=== PATIENT | female | born 1965 ===

== ENCOUNTER 2017-04-02 15:54 | Emergency (ER) | payer MEDICAID ==
[2017-04-02 16:09] VITALS: TEMP 97.9
[2017-04-02] MEDS ORDERED: Lidocaine 2% Viscous 100 ml PO STA (16:34)
[2017-04-02] MEDS ORDERED: Alum-Mag Hydrox-Simethicone Susp (30 mL) PO STA (16:34)
--- NOTE | 2017-04-02 16:39 | C.PDOC ---
History Of Present Illness 51-year-old female, PMHx includes Anemia, Anxiety, Asthma, Bipolar Disorder, Colonic Polyps, Depression, Diabetes, Gall Bladder Disease (Gallstones), Hepatitis (C), Hypertension, Hypercholesterolemia, and Schizophrenia, presents to the emergency department with complaints of abdominal pain. Patient states she accidentally took one large gulp of bleach two days ago, which she mistook for a bottle of water. patient developed abdominal "burning" yesterday and had several episodes of non-bloody/non-bilious vomiting.vomited several times. Patient adamantly denies any suicidal ideation. No other complaints at this time. Of note, patient had a syncopal episode in waiting room. Time Seen by Provider: 04/02/17 16:04 Chief Complaint (Nursing): Syncope History Per: Patient History/Exam Limitations: no limitations Past Medical History Reviewed: Historical Data, Nursing Documentation, Vital Signs Vital Signs: Last Vital Signs Temp 97.9 F 04/02/17 16:03 Pulse 76 04/02/17 19:10 Resp 18 04/02/17 19:10 BP 128/85 04/02/17 19:10 Pulse Ox 98 04/02/17 19:10 - Medical History PMH: Anemia, Anxiety, Asthma, Bipolar Disorder, Colonic Polyps, Depression, Diabetes, Gall Bladder Disease (Gallstones), Hepatitis (C), HTN, Hypercholesterolemia, Schizophrenia, TIA (2013) Denies: Fractures, HIV, Chronic Kidney Disease, Seizures, Sexually Transmitted Disease Surgical History: Cholecystectomy Denies: Endoscopy - [facility] Procedures GROUP SPEECH LANGUAGE PATHOLOGY ASSISTANT FOR SUBSTANCE ABUSE TREATMENT, PSYCHOEDUCATION (10/23/16) INJECT/INFUSE NEC (08/02/15) RABIES VACCINATION (07/05/15) TETANUS TOXOID ADMINIST (06/18/15) Family History: States: No Known Family Hx - Social History Hx Tobacco Use: Yes Hx Alcohol Use: Yes Hx Substance Use: No - Immunization History Hx Tetanus Toxoid Vaccination: Yes Hx Influenza Vaccination: No Hx Pneumococcal Vaccination: No Review Of Systems Constitutional: Negative for: Fever Cardiovascular: Negative for: Chest Pain Respiratory: Negative for: Shortness of Breath Gastrointestinal: Positive for: Abdominal Pain. Negative for: Nausea, Vomiting Musculoskeletal: Negative for: Back Pain Neurological: Positive for: Other (syncope) Physical Exam - Physical Exam Appears: Non-toxic Skin: Warm, Dry Head: Atraumatic Eye(s): bilateral: PERRL Nose: No Epistaxis Oral Mucosa: Moist Tongue: No Swelling, No Lesions Lips: No Swelling, No Contusion Gingiva: No Erythema, No Ulceration, No Swelling Throat: No Erythema, No Exudate, No Drooling Neck: Normal ROM Cardiovascular: Rhythm Regular Respiratory: No Decreased Breath Sounds, No Accessory Muscle Use, No Rales, No Rhonchi, No Stridor, No Wheezing Gastrointestinal/Abdominal: Soft, Tenderness (non focal. diffuse), No Distention , No Guarding, No Rebound Extremity: No Swelling Neurological/Psych: Oriented x3, Other (no focal deficits) ED Course And Treatment - Laboratory Results Result Diagrams: 04/02/17 17:02 04/02/17 17:19 O2 Sat by Pulse Oximetry: 92 Medical Decision Making Medical Decision Making: Chest X-Ray: No free air. non-specific bowel gas pattern ecg- nsr, nl axis, no acute ischemia [facility] spoke with pt- no indication for psych admission at this time. Poison control contacted- no specific treatment or testing indicated at this time for swallowing small amount of household bleach. PROCEDURE: CT Abdomen and Pelvis without intravenous contrast HISTORY: abd pain COMPARISON: 10/14/2016. CT abdomen and pelvis. Summary of findings on the comparison examination: Segmental thickening of the ascending colon consistent with colitis. October 15, 2016 abdominal ultrasound. Summary of findings on the comparison examination: 1.6 x 1.7 cm hepatic cysts. TECHNIQUE: Unenhanced study. Neither oral nor intravenous contrast administered. Sensitivity and specificity for acute inflammatory processes limited by the absence of oral and intravenous contrast. Radiation dose: Total exam DLP = mGy-cm. This CT exam was performed using one or more of the following dose reduction techniques: Automated exposure control, adjustment of the mA and/or kV according to patient size, and/or use of iterative reconstruction technique. FINDINGS: LOWER THORAX: Unremarkable. LIVER: Unremarkable. No gross lesion or ductal dilatation. Incidental finding(s): 2 cm cyst right hepatic lobe/dome of diaphragm unchanged. GALLBLADDER AND BILE DUCTS: Status post cholecystectomy. No abnormality is seen in the gallbladder fossa. PANCREAS: Unremarkable. No gross lesion or ductal dilatation. SPLEEN: Unremarkable. ADRENALS: Unremarkable. No mass. KIDNEYS AND URETERS: Unremarkable. No hydronephrosis. No solid mass. VASCULATURE: Unremarkable. No aortic aneurysm. BOWEL: Unremarkable. No obstruction. No gross mural thickening. Constipation without fecal impaction or obstruction. APPENDIX: Unremarkable. Normal appendix. PERITONEUM: Unremarkable. No free fluid. No free air. LYMPH NODES: Unremarkable. No enlarged lymph nodes. BLADDER: Unremarkable. REPRODUCTIVE: Unremarkable. BONES: No acute fracture. OTHER FINDINGS: None. IMPRESSION: No acute findings related to/accounting for the clinical presentation. Additional benign and/or incidental findings described above. Disposition - Disposition Referrals: Nabil Mai MD [Staff Provider] - [facility] [Outside] Disposition: HOME/ ROUTINE Disposition Time: 19:00 Condition: STABLE Additional Instructions: Please follow up with your doctor. Return to the ER for any worsening symptoms or for any other concerns. Prescriptions: Famotidine [Pepcid] 20 mg PO DAILY #14 tab Forms: General Discharge Instructions - Clinical Impression Clinical Impression: Accidental ingestion of substance - Scribe Statement The provider has reviewed the documentation as recorded by the Jeb Hobbs All medical record entries made by the Lincolnibrose were at my direction and personally dictated by me. I have reviewed the chart and agree that the record accurately reflects my personal performance of the history, physical exam, medical decision making, and the department course for this patient. I have also personally directed, reviewed, and agree with the discharge instructions and disposition.
[2017-04-02] MEDS ORDERED: Aluminum Hydroxide/Magnesium Hydroxide Susp (30 mL) ONE (16:45)
[2017-04-02] MEDS ORDERED: Alum-Mag Hydrox-Simethicone Susp (30 mL) ONE (16:50)
[2017-04-02 17:25] LABS: BASO % 0.7 % (0.0-2.0); EOS % 0.4 % (0.0-4.0); HEMATOCRIT 39.2 % (34.0-47.0); LYMPH % 36.6 % (20.0-40.0); MEAN CELL VOLUME 75.6 fL (81.0-99.0); MEAN CORPUSCULAR HEMOGLOBIN 24.8 pg (27.0-31.0); MEAN CORPUSCULAR HGB CONC 32.8 g/dL (33.0-37.0); MEAN PLATELET VOLUME 9.7 fL (7.2-11.7); MONO # 0.2 K/uL (0.0-0.8); MONO % 4.4 % (0.0-10.0); NRBC % 0.1 % (0.0-2.0); RED CELL DISTRIBUTION WIDTH 14.9 % (11.5-14.5); WHITE BLOOD COUNT 5.5 K/uL (4.8-10.8)
--- NOTE | 2017-04-02 17:30 | CT ---
PROCEDURE: CT HEAD WITHOUT CONTRAST. HISTORY: syncope fall COMPARISON: Comparison is made to 08/28/2015 TECHNIQUE: Axial computed tomography images were obtained through the head/brain without intravenous contrast. Radiation dose: Total exam DLP = 821.93 mGy-cm. This CT exam was performed using one or more of the following dose reduction techniques: Automated exposure control, adjustment of the mA and/or kV according to patient size, and/or use of iterative reconstruction technique. FINDINGS: HEMORRHAGE: No intracranial hemorrhage. BRAIN: No mass effect or edema. Mild atrophy is again noted. VENTRICLES: Unremarkable. No hydrocephalus. CALVARIUM: Unremarkable. PARANASAL SINUSES: Unremarkable as visualized. No significant inflammatory changes. MASTOID AIR CELLS: Partial opacification of the left mastoid is noted. OTHER FINDINGS: None. IMPRESSION: No evidence of acute intracranial hemorrhage intracranial collection mass effect or midline shift. Partial opacification of the left mastoid noted.
[2017-04-02 17:34] LABS: CHLORIDE 105 mmol/L (98-107)
[2017-04-02 17:35] LABS: POTASSIUM 3.3 mmol/L (3.6-5.2); SODIUM 142 mmol/L (132-148)
[2017-04-02 17:37] LABS: ALB/GLOB RATIO 1.3 (1.0-2.1); ALKALINE PHOSPHATASE 109 U/L (38-126); AST/SGOT 40 U/L (14-36); BILIRUBIN,TOTAL 0.9 mg/dL (0.2-1.3); BLOOD UREA NITROGEN 9 mg/dL (7-17); CARBON DIOXIDE 23 mmol/L (22-30); GFR AFRICAN-AMERICAN > 60; GLUCOSE,RANDOM 87 mg/dL (65-105); TOTAL PROTEIN 7.6 g/dL (6.3-8.3)
[2017-04-02 17:38] LABS: ALT/SGPT 29 U/L (9-52); CALCIUM 9.1 mg/dl (8.6-10.4)
[2017-04-02 17:51] LABS: ALCOHOL SERUM 191 mg/dl (0-10)
--- NOTE | 2017-04-02 18:57 | CT ---
PROCEDURE: CT Abdomen and Pelvis without intravenous contrast HISTORY: abd pain COMPARISON: 10/14/2016. CT abdomen and pelvis. Summary of findings on the comparison examination: Segmental thickening of the ascending colon consistent with colitis. October 15, 2016 abdominal ultrasound. Summary of findings on the comparison examination: 1.6 x 1.7 cm hepatic cysts. TECHNIQUE: Unenhanced study. Neither oral nor intravenous contrast administered. Sensitivity and specificity for acute inflammatory processes limited by the absence of oral and intravenous contrast. Radiation dose: Total exam DLP = mGy-cm. This CT exam was performed using one or more of the following dose reduction techniques: Automated exposure control, adjustment of the mA and/or kV according to patient size, and/or use of iterative reconstruction technique. FINDINGS: LOWER THORAX: Unremarkable. LIVER: Unremarkable. No gross lesion or ductal dilatation. Incidental finding(s): 2 cm cyst right hepatic lobe/dome of diaphragm unchanged. GALLBLADDER AND BILE DUCTS: Status post cholecystectomy. No abnormality is seen in the gallbladder fossa. PANCREAS: Unremarkable. No gross lesion or ductal dilatation. SPLEEN: Unremarkable. ADRENALS: Unremarkable. No mass. KIDNEYS AND URETERS: Unremarkable. No hydronephrosis. No solid mass. VASCULATURE: Unremarkable. No aortic aneurysm. BOWEL: Unremarkable. No obstruction. No gross mural thickening. Constipation without fecal impaction or obstruction. APPENDIX: Unremarkable. Normal appendix. PERITONEUM: Unremarkable. No free fluid. No free air. LYMPH NODES: Unremarkable. No enlarged lymph nodes. BLADDER: Unremarkable. REPRODUCTIVE: Unremarkable. BONES: No acute fracture. OTHER FINDINGS: None. IMPRESSION: No acute findings related to/accounting for the clinical presentation. Additional benign and/or incidental findings described above.
[2017-04-02 19:10] VITALS: BP 128/85; PULSE 76; RESP 18
--- NOTE | 2017-04-03 10:54 | RAD ---
PROCEDURE: Radiographs of the chest and abdomen (obstructive series) HISTORY: abd pain after drinking bleach COMPARISON: No prior. TECHNIQUE: AP radiograph of the chest, with upright and supine radiographs of the abdomen. FINDINGS: CHEST: Lungs: Clear. Cardiovascular: Normal size heart. No pulmonary vascular congestion. Pleura: No pleural fluid. No pneumothorax. Other findings: None. ABDOMEN AND PELVIS: Bowel: Unremarkable bowel gas pattern. No evidence of mechanical obstruction. Free air: None. Bones: Unremarkable. Other findings: None. IMPRESSION: No acute findings related to/accounting for the clinical presentation.
--- NOTE | 2017-04-03 22:56 | CARD ---
APPROVED REPORT EKG Measurement Heart [id number] [place] [id number] <Conclusion> Normal sinus rhythm Normal ECG
[2017-04-04 08:15] VITALS: O2SAT 92
== END 2017-04-02 19:24 | disposition home or self-care (01) ==
LOC: C.ER 15:54
DX: T54.91XA Toxic effect of unspecified corrosive substance, accidental (unintentional), initial encounter (principal); R11.10 Vomiting, unspecified; E11.9 Type 2 diabetes mellitus without complications; I10 Essential (primary) hypertension; E78.00 Pure hypercholesterolemia, unspecified

== ENCOUNTER 2017-11-21 19:37 | Emergency (ER) | payer MEDICAID ==
[2017-11-21 19:37] VITALS: BMI 26.3
--- NOTE | 2017-11-21 21:02 | C.PDOC ---
History Of Present Illness 52 year old female with a Hx of schizophrenia and bipolar disorder presents to the ER stating she has suicidal ideation and attempted to commit suicide by cutting herself. Patient reports she has attempted suicide in the past and was hospitalized last month after drinking clorox. Patient states she feels pressured with having to take care of her brother and getting evicted. Patient admits to ETOH use tonight but denies any substance abuse. Patient is manipulative requesting her medications and how long she will be staying, states she will leave if she is not going to be seen soon. Time Seen by Provider: 11/21/17 21:00 Chief Complaint (Nursing): Psychiatric Evaluation History Per: Patient History/Exam Limitations: no limitations Onset/Duration Of Symptoms: Hrs Current Symptoms Are (Timing): Still Present Suicide/Self Injury Attempted (Context): Cut Wrists Modifying Factor(s): Alcohol Associated Symptoms: Suicidal Thoughts, Suicidal Plan Involuntary Hold By: None Recent travel outside of the [place]: No Past Medical History Reviewed: Historical Data, Nursing Documentation, Vital Signs Vital Signs: Last Vital Signs Temp 98.2 F 11/22/17 05:37 Pulse 84 11/22/17 05:37 Resp 16 11/22/17 05:37 BP 128/74 11/22/17 05:37 Pulse Ox 97 11/22/17 05:37 - Medical History PMH: Anemia, Anxiety, Asthma, Bipolar Disorder, Colonic Polyps, Depression, Diabetes, Gall Bladder Disease (Gallstones), Hepatitis (C), HTN, Hypercholesterolemia, Schizophrenia, TIA (2013) Surgical History: Cholecystectomy - [facility] Procedures GROUP SHEEP OR CALF GRADER FOR SUBSTANCE ABUSE TREATMENT, PSYCHOEDUCATION (10/23/16) INJECT/INFUSE NEC (08/02/15) RABIES VACCINATION (07/05/15) TETANUS TOXOID ADMINIST (06/18/15) Family History: States: Unknown Family Hx - Social History Hx Tobacco Use: Yes Hx Alcohol Use: Yes Hx Substance Use: No - Immunization History Hx Tetanus Toxoid Vaccination: Yes Hx Influenza Vaccination: No Hx Pneumococcal Vaccination: No Review Of Systems Constitutional: Negative for: Fever, Chills Cardiovascular: Negative for: Chest Pain, Palpitations Respiratory: Negative for: Shortness of Breath Gastrointestinal: Negative for: Nausea, Vomiting Psych: Positive for: Suicidal ideation Physical Exam - Physical Exam Appears: Non-toxic, No Acute Distress Skin: Warm, Dry Head: Atraumatic, Normacephalic Oral Mucosa: Moist Chest: Symmetrical, No Tenderness Cardiovascular: Rhythm Regular, No Murmur Respiratory: Normal Breath Sounds, No Rales, No Rhonchi, No Wheezing Gastrointestinal/Abdominal: Soft, No Tenderness Extremity: Normal ROM (x4), Other (Mild superficial abrasions to right wrist) Neurological/Psych: Oriented x3, Normal Speech ED Course And Treatment - Laboratory Results Result Diagrams: 11/21/17 21:19 11/21/17 21:19 O2 Sat by Pulse Oximetry: 98 (Room air) Pulse Ox Interpretation: Normal Medical Decision Making Medical Decision Making: EKG, blood work, and urinalysis ordered. Crisis notified. Disposition - Disposition Referrals: [facility] [Outside] Disposition: HOME/ ROUTINE Disposition Time: 06:38 Condition: FAIR Instructions: Depression (ED), Anxiety (ED) Forms: [employer] ([place]) - Clinical Impression Clinical Impression: Manic bipolar I disorder, Alcohol abuse - Scribe Statement The provider has reviewed the documentation as recorded by the Scribrose Beth All medical record entries made by the Scribe were at my direction and personally dictated by me. I have reviewed the chart and agree that the record accurately reflects my personal performance of the history, physical exam, medical decision making, and the department course for this patient. I have also personally directed, reviewed, and agree with the discharge instructions and disposition.
[2017-11-21 21:23] LABS: BASO # 0.1 K/uL (0.0-0.2); EOS # 0.1 K/uL (0.0-0.7); EOS % 1.5 % (0.0-4.0); HEMOGLOBIN 12.1 g/dL (11.0-16.0); LYMPH # 2.7 K/uL (1.0-4.3); LYMPH % 48.4 % (20.0-40.0); MEAN CELL VOLUME 76.3 fL (81.0-99.0); MEAN CORPUSCULAR HEMOGLOBIN 25.2 pg (27.0-31.0); MEAN PLATELET VOLUME 9.5 fL (7.2-11.7); MONO # 0.3 K/uL (0.0-0.8); MONO % 5.3 % (0.0-10.0); NEUT # 2.5 K/uL (1.8-7.0); NEUT % 43.8 % (50.0-75.0); NRBC % 0.1 % (0.0-2.0); RBC 4.82 Mil/uL (3.80-5.20); RED CELL DISTRIBUTION WIDTH 14.8 % (11.5-14.5); WHITE BLOOD COUNT 5.7 K/uL (4.8-10.8)
[2017-11-21 21:27] LABS: URINE BILIRUBIN NEGATIVE (NEGATIVE); URINE BLOOD NEGATIVE (NEGATIVE); URINE CLARITY Clear (Clear); URINE COLOR Colorless (YELLOW); URINE GLUCOSE (UA) NORMAL (Normal); URINE LEUKOCYTE ESTERASE NEG Leu/uL (Negative); URINE NITRATE NEGATIVE (NEGATIVE); URINE PROTEIN NEGATIVE (NEGATIVE); URINE UROBILINOGEN NORMAL mg/dL (0.2-1.0)
[2017-11-21 21:35] LABS: ALB/GLOB RATIO 1.3 (1.0-2.1); ALT/SGPT 26 U/L (9-52); AST/SGOT 36 U/L (14-36); BLOOD UREA NITROGEN 11 mg/dL (7-17); CALCIUM 8.4 mg/dl (8.6-10.4); GFR AFRICAN-AMERICAN > 60; GFR NON-AFRICAN AMERICAN > 60
[2017-11-21 21:39] LABS: BARBITURATES, UR NEGATIVE (NEGATIVE); BENZODIAZEPINES, UR NEGATIVE (NEGATIVE); OPIATES, UR NEGATIVE (NEGATIVE); PHENCYCLIDINE, UR NEGATIVE (NEGATIVE)
[2017-11-21 21:40] LABS: ACETAMINOPHEN < 10.0 ug/mL (10.0-30.0); SALICYLATE < 1.0 mg/dL 1
[2017-11-22 05:38] VITALS: BP 128/74; PULSE 84; RESP 16; TEMP 98.2
[2017-11-22 06:38] VITALS: O2SAT 98
--- NOTE | 2017-11-24 15:05 | CARD ---
APPROVED REPORT EKG Measurement Heart [id number] NC 140P44 [id number] <Conclusion> Normal sinus rhythm Prolonged QT Abnormal ECG
== END 2017-11-22 05:38 | disposition home or self-care (01) ==
LOC: C.ER 19:37
DX: F10.10 Alcohol abuse, uncomplicated (principal); F31.9 Bipolar disorder, unspecified; E11.9 Type 2 diabetes mellitus without complications; E78.00 Pure hypercholesterolemia, unspecified; I10 Essential (primary) hypertension
CPT/HCPCS: 80053; 80320; 80324; 80329; 80345; 80346; 80349; 80353; 80358; 80361; 81001; 83992; 85025; 96372; 99285; J2060; J3486

== ENCOUNTER 2018-06-01 16:14 | Emergency (ER) | payer OTHER ==
[2018-06-01 16:15] VITALS: BMI 26.3
[2018-06-01 16:23] VITALS: BP 106/75; PULSE 92; RESP 18; TEMP 98.1; O2SAT 97
--- NOTE | 2018-06-01 16:32 | C.PDOC ---
History Of Present Illness 52 year old female presents to the ED for psychiatric evaluation. Patient states she does not have insurance and cannot afford her medications. Patient was on the phone with a medicare case resolution specialist and was informed that her medication cannot be covered. She verbalized to the senior logistics manager, "you're held responsible if anything happens to me," which prompted the senior logistics manager to call the ambulance. Patient denies suicidal ideation/plan currently and does not have any physical complaints at this time. Time Seen by Provider: 06/01/18 16:19 Chief Complaint (Nursing): Psychiatric Evaluation History Per: Patient History/Exam Limitations: no limitations Onset/Duration Of Symptoms: Hrs Current Symptoms Are (Timing): Better Suicide/Self Injury Attempted (Context): None Associated Symptoms: denies: Suicidal Thoughts, Suicidal Plan Involuntary Hold By: None Recent travel outside of the [place]: No Additional History Per: Patient Past Medical History Reviewed: Historical Data, Nursing Documentation, Vital Signs Vital Signs: Last Vital Signs Temp 98.1 F 06/01/18 16:18 Pulse 92 H 06/01/18 16:18 Resp 18 06/01/18 16:18 BP 106/75 06/01/18 16:18 Pulse Ox 97 06/01/18 16:43 - Medical History PMH: Anemia, Anxiety, Asthma, Bipolar Disorder, Colonic Polyps, Depression, Diabetes, Gall Bladder Disease (Gallstones), Hepatitis (C), HTN, Hypercholesterolemia, Schizophrenia, TIA (2013) Denies: Fractures, HIV, Chronic Kidney Disease, Seizures, Sexually Transmitted Disease Surgical History: Cholecystectomy Denies: Endoscopy - [facility] Procedures GROUP RAG BALER FOR SUBSTANCE ABUSE TREATMENT, PSYCHOEDUCATION (10/23/16) INJECT/INFUSE NEC (08/02/15) RABIES VACCINATION (07/05/15) TETANUS TOXOID ADMINIST (06/18/15) Family History: States: Unknown Family Hx - Social History Hx Tobacco Use: Yes Hx Alcohol Use: Yes Hx Substance Use: No - Immunization History Hx Tetanus Toxoid Vaccination: Yes Hx Influenza Vaccination: No Hx Pneumococcal Vaccination: No Review Of Systems Psych: Positive for: Other (psychiatric evaluation ). Negative for: Suicidal ideation Physical Exam - Physical Exam Appears: Non-toxic, No Acute Distress Skin: Normal Color, Warm, Dry Head: Atraumatic, Normacephalic Eye(s): bilateral: Normal Inspection Oral Mucosa: Moist Neck: Supple Chest: Symmetrical, No Deformity Cardiovascular: Rhythm Regular Respiratory: Normal Breath Sounds, No Accessory Muscle Use Extremity: Normal ROM Neurological/Psych: Oriented x3, Normal Speech, Normal Cognition ED Course And Treatment O2 Sat by Pulse Oximetry: 97 (on RA) Pulse Ox Interpretation: Normal Medical Decision Making Medical Decision Making: Assessment: psychiatric evaluation Progress: bipolar - cleared medically and okay to discharge home as per Dr. Mcgovern. Pharmacy will fill some of patient medication Disposition Discussed With Dr.: Amari Mcgovern Counseled Patient/Family Regarding: Diagnosis, Need For Followup - Disposition Referrals: Nabil Mai MD [Staff Provider] - Disposition: HOME/ ROUTINE Disposition Time: 17:07 Condition: STABLE Additional Instructions: follow up with your psychatrist within 2 days call to make an appointment continue your medications as home return to ER if symptoms worsens or progress Instructions: Bipolar Disorder (DC) Forms: [employer] (Indian), General Discharge Instructions - Clinical Impression Clinical Impression: Bipolar 1 disorder - Scribe Statement The provider has reviewed the documentation as recorded by the Scribe (Yuli Olvera) Provider Attestation: All medical record entries made by the Scribe were at my direction and personally dictated by me. I have reviewed the chart and agree that the record accurately reflects my personal performance of the history, physical exam, medical decision making, and the department course for this patient. I have also personally directed, reviewed, and agree with the discharge instructions and disposition.
== END 2018-06-01 17:21 | disposition home or self-care (01) ==
LOC: C.ER 16:14
DX: F31.9 Bipolar disorder, unspecified (principal)

== ENCOUNTER 2018-12-14 12:57 | Outpatient (CLI) | payer MEDICAID | END 2018-12-14 12:58 | disposition home or self-care (01) | LOC: C.USIC 12:58 | DX: Z12.31 Encounter for screening mammogram for malignant neoplasm of breast (principal); R10.2 Pelvic and perineal pain ==

== ENCOUNTER 2018-12-15 09:49 | Outpatient (CLI) | payer MEDICAID, SELFPAY | END 2018-12-15 09:50 | disposition home or self-care (01) | LOC: C.RT 09:49 | DX: R06.00 Dyspnea, unspecified (principal) ==

== ENCOUNTER 2019-03-04 11:02 | Outpatient (CLI) | payer MEDICAID | END 2019-03-04 11:03 | disposition home or self-care (01) | LOC: C.USIC 11:02 | DX: Z86.39 Personal history of other endocrine, nutritional and metabolic disease (principal) ==